=== PATIENT | female | born 1960 | race American Indian/Alaskan Native ===

== ENCOUNTER 2021-12-09 10:51 | Emergency (ER) | payer SELFPAY ==
[2021-12-09 12:04] VITALS: BP 156/88
[2021-12-09] MEDS: ONDANSETRON 4 MG/2 ML INJ IV ONE (12:32)
--- NOTE | 2021-12-09 12:35 | Emergency Department Report ---
ED General Adult HPI - General Chief complaint: Abdominal Pain Stated complaint: ABD PAIN Time Seen by Provider: 12/09/21 11:30 Source: patient, EMS Mode of arrival: Stretcher Limitations: No Limitations - History of Present Illness Initial comments: Patient presents to the emergency department with a chief complaint of abdominal pain. Patient's family member helps interpret the patient's history. The patient has had abdominal pain for the last 2 months that is intermittent in nature. Patient has not had any nausea, vomiting, or diarrhea with the pain. The patient has a MRI scheduled for this upcoming Monday but has not had a EGD or colonoscopy. -: Gradual Location: abdomen Radiation: non-radiation Severity scale (0 -10): 10 Quality: sharp Consistency: intermittent Improves with: none Worsens with: none Associated Symptoms: denies other symptoms Treatments Prior to Arrival: none - Related Data Previous Rx's Medication Instructions Recorded Last Taken Type HYDROcodone/APAP 5-325 [Milton 1 each PO Q6HR PRN #12 tablet 12/09/21 Unknown Rx 5/325] Ondansetron [Zofran Odt] 4 mg PO Q4HR PRN #20 tab.rapdis 12/09/21 Unknown Rx Allergies Allergy/AdvReac Type Severity Reaction Status Date / Time No Known Allergies Allergy Unverified 12/09/21 11:12 ED Review of Systems ROS: Stated complaint: ABD PAIN Other details as noted in HPI Comment: All other systems reviewed and negative Constitutional: denies: chills, fever Eyes: denies: eye pain, eye discharge, vision change ENT: denies: ear pain, throat pain Respiratory: denies: cough, shortness of breath, wheezing Cardiovascular: denies: chest pain, palpitations Endocrine: no symptoms reported Gastrointestinal: abdominal pain. denies: nausea, diarrhea Genitourinary: denies: urgency, dysuria, discharge Musculoskeletal: denies: back pain, joint swelling, arthralgia Skin: denies: rash, lesions Neurological: denies: headache, weakness, paresthesias Psychiatric: denies: anxiety, depression Hematological/Lymphatic: denies: easy bleeding, easy bruising ED Past Medical Hx - Medications Home Medications: Home Medications Medication Instructions Recorded Confirmed Last Taken Type HYDROcodone/APAP 5-325 [Milton 1 each PO Q6HR PRN #12 tablet 12/09/21 Unknown Rx 5/325] Ondansetron [Zofran Odt] 4 mg PO Q4HR PRN #20 tab.rapdis 12/09/21 Unknown Rx ED Physical Exam - General Limitations: No Limitations General appearance: alert, in no apparent distress - Head Head exam: Present: atraumatic, normocephalic - Eye Eye exam: Present: normal appearance, PERRL, EOMI - ENT ENT exam: Present: mucous membranes moist - Neck Neck exam: Present: normal inspection - Respiratory Respiratory exam: Present: normal lung sounds bilaterally. Absent: respiratory distress - Cardiovascular Cardiovascular Exam: Present: regular rate, normal rhythm. Absent: systolic murmur, diastolic murmur, rubs, gallop - GI/Abdominal GI/Abdominal exam: Present: soft, tenderness (Tenderness to palpation left lower quadrant), normal bowel sounds. Absent: distended - Extremities Exam Extremities exam: Present: normal inspection - Back Exam Back exam: Present: normal inspection - Neurological Exam Neurological exam: Present: alert, oriented X3, CN II-XII intact. Absent: motor sensory deficit - Psychiatric Psychiatric exam: Present: normal affect, normal mood - Skin Skin exam: Present: warm, dry, intact, normal color. Absent: rash ED Course Vital Signs 12/09/21 12/09/21 12/09/21 10:51 11:44 11:45 Temperature 98.3 F Pulse Rate 96 H 87 Respiratory 18 23 22 Rate Blood Pressure Blood Pressure 169/102 [Left] O2 Sat by Pulse 98 100 Oximetry 12/09/21 12:01 Temperature Pulse Rate 77 Respiratory 20 Rate Blood Pressure 156/88 Blood Pressure [Left] O2 Sat by Pulse 98 Oximetry ED Medical Decision Making - Lab Data Result diagrams: 12/09/21 13:00 12/09/21 13:00 Lab Results 12/09/21 12/09/21 Range/Units 13:00 13:00 WBC 8.4 (4.5-11.0) K/mm3 RBC 4.09 (3.65-5.03) M/mm3 Hgb 11.8 (10.1-14.3) gm/dl Hct 35.7 (30.3-42.9) % MCV 87 (79-97) fl MCH 29 (28-32) pg MCHC 33 (30-34) % RDW 13.3 (13.2-15.2) % Plt Count 235 (140-440) K/mm3 Lymph % (Auto) 21.4 (13.4-35.0) % Winkler % (Auto) 8.8 H (0.0-7.3) % Eos % (Auto) 1.3 (0.0-4.3) % Baso % (Auto) 0.4 (0.0-1.8) % Lymph # (Auto) 1.8 (1.2-5.4) K/mm3 Winkler # (Auto) 0.7 (0.0-0.8) K/mm3 Eos # (Auto) 0.1 (0.0-0.4) K/mm3 Baso # (Auto) 0.0 (0.0-0.1) K/mm3 Seg Neutrophils % 68.1 (40.0-70.0) % Seg Neutrophils # 5.7 (1.8-7.7) K/mm3 Sodium 135 L (137-145) mmol/L Potassium 4.2 (3.6-5.0) mmol/L Chloride 100.1 (98-107) mmol/L Carbon Dioxide 25 (22-30) mmol/L Anion Gap 14 mmol/L BUN 6 L (7-17) mg/dL Creatinine 1.1 (0.6-1.2) mg/dL Estimated GFR > 60 ml/min BUN/Creatinine Ratio 5 % Glucose 108 H (65-100) mg/dL Calcium 9.3 (8.4-10.2) mg/dL Total Bilirubin 0.30 (0.1-1.2) mg/dL AST 18 (5-40) units/L ALT 17 (7-56) units/L Alkaline Phosphatase 83 (35-129) units/L Total Protein 7.2 (6.3-8.2) g/dL Albumin 4.3 (3.9-5) g/dL Albumin/Globulin Ratio 1.5 % Lipase 16 (13-60) units/L - Radiology Data Radiology results: report reviewed - Medical Decision Making Discussed results with the patient's family member and stressed importance of following up with [facility] and to keep the MRI as scheduled within the next couple of days. Critical care attestation.: If time is entered above; I have spent that time in minutes in the direct care of this critically ill patient, excluding procedure time. ED Disposition Clinical Impression: Adnexal mass, Ovarian mass Disposition: 01 HOME / SELF CARE / HOMELESS Is pt being admited?: No Does the pt Need Aspirin: No Condition: Stable Instructions: Abdominal Pain (ED), Pelvic Pain, Female Additional Instructions: return if worse Please keep the MRI appointment and follow-up with [facility] Referrals: PRIMARY CARE, [Primary Care Provider] - 3-5 Days JOHN CERVANTES MD [Staff Physician] - 3-5 Days MARA PAUL MD [Staff Physician] - 3-5 Days Time of Disposition: 16:07
[2021-12-09] MEDS ORDERED: NalbUPHINE 10 MG/1 ML INJ IV ONE (13:00)
[2021-12-09 13:32] LABS: Basophils % (Auto) 0.4 % (0.0-1.8); Eosinophils # (Auto) 0.1 K/mm3 (0.0-0.4); Eosinophils % (Auto) 1.3 % (0.0-4.3); Hematocrit 35.7 % (30.3-42.9); Hemoglobin 11.8 gm/dl (10.1-14.3); Lymphocytes # (Auto) 1.8 K/mm3 (1.2-5.4); Lymphocytes % (Auto) 21.4 % (13.4-35.0); Mean Corpuscular HGB Conc 33 % (30-34); Mean Corpuscular Volume 87 fl (79-97); Monocytes # (Auto) 0.7 K/mm3 (0.0-0.8); Monocytes % (Auto) 8.8 % (0.0-7.3); Platelet Count 235 K/mm3 (140-440); Red Blood Count 4.09 M/mm3 (3.65-5.03); Red Cell Distribution Width 13.3 % (13.2-15.2)
[2021-12-09 13:51] LABS: Alanine Aminotransferase 17 units/L (7-56); Albumin 4.3 g/dL (3.9-5); BUN/Creatinine Ratio 5; Blood Urea Nitrogen 6 mg/dL (7-17); Calcium 9.3 mg/dL (8.4-10.2); Hemolysis Index 14
--- NOTE | 2021-12-09 15:02 | Cat Scan Report ---
CT ABDOMEN AND PELVIS WITH CONTRAST INDICATION / CLINICAL INFORMATION: Left lower quadrant abdominal pain. TECHNIQUE: Axial CT images were obtained through the abdomen and pelvis after 100 cc of Omnipaque 350 IV contras t. Sagittal and coronal reformatted images. All CT scans at this location are performed using CT dose reduction for ALARA by means of automated exposure control. COMPARISON: None available. FINDINGS: LOWER CHEST: Mild bibasilar atelectatic changes. No infiltrate, effusion or mass. LIVER: No significant abnormality. GALLBLADDER: No significant abnormality. BILE DUCTS: No significant abnormality. PANCREAS: No significant abnormality. SPLEEN: No significant abnormality. ADRENALS: No significant abnormality. RIGHT KIDNEY and URETER: The right kidney is atrophic. There is moderate right hydronephrosis. The di stal left ureter appears obstructed near the level of the pelvic brim possible mass. LEFT KIDNEY and URETER: No significant abnormality. STOMACH and SMALL BOWEL: No significant abnormality. COLON: No significant abnormality. APPENDIX: No significant abnormality. PERITONEUM: No free fluid. No free air. No fluid collection. LYMPH NODES: No pathologic adenopathy is detected. AORTA and ARTERIES: No significant abnormality. IVC and VEINS: No significant abnormality. URINARY BLADDER: No obvious abnormality. REPRODUCTIVE ORGANS: Gynecological structures are abnormal. The uterus appears displaced to the left side. There is a complex, enhancing, partially cystic mass lesion in the right adnexa concerning for a neoplastic process. This lesion measures up to 6.9 x 5.3 x 6.3 cm. It is unclear if this mass lesio n arises from the right ovary, right side of the uterus or possibly the cervix. The mass abuts the po sterior bladder wall and may invade the bladder. The mass also appears to occlude or severely soha s the distal right ureter. ADDITIONAL FINDINGS: There is an ill-defined soft tissue density subcutaneous mass lateral to the rig ht hip measuring 2.4 x 1.4 x 5.2 cm. The clinical significance of this is unclear. I suppose a metast atic lesion or focal inflammation could be considered. SKELETAL SYSTEM: No suspicious bony lesion is detected. IMPRESSION: Complex partially cystic right adnexal mass as described above. Considerations would be ovarian canc er, uterine cancer possibly cervical cancer. Consider further evaluation with MRI of the pelvis with and without contrast. The right kidney is atrophic with diffuse cortical thinning and moderate hydronephrosis. The pelvic m ass appears to severely compress or occlude the distal right ureter. Signer Name: Jagdish Garcia Jr, MD Signed: 12/09/2021 2:58 PM Workstation Name: [id number]
== END 2021-12-09 16:34 | disposition home or self-care (01) ==
LOC: ED 10:51
DX: N83.209 Unspecified ovarian cyst, unspecified side (principal); D23.9 Other benign neoplasm of skin, unspecified
CPT/HCPCS: 36415; 74177; 80053; 83690; 85025; 96374; 96375; 99284; J2300; J2405; Q9967